=== PATIENT | female | born 1960 | race Caucasian/White ===

== ENCOUNTER 2024-10-18 06:13 | Day surgery (SDC) | payer BC, SELFPAY ==
[2024-10-18] VITALS (12 sets, daily range): BP systolic 150–185; BP diastolic 78–103; PULSE 55–67; RESP 16–20; TEMP 36.3–36.7; O2SAT 93–100; BMI 21.9
[2024-10-18] MEDS: LACTATED RINGERS 1000 ML 1,000 ML 100 ML IV (06:55)
[2024-10-18] MEDS: SODIUM CHLORIDE 0.9 % (FLUSH) 10 ML SYRINGE IVF (06:55)
--- NOTE | 2024-10-18 07:40 | W.PM.H&PU ---
History & Physical Update History & Physical Update H&P Reviewed and patient assessed: No changes noted
[2024-10-18] MEDS: CEFAZOLIN 1 GM inj IVP (07:44)
[2024-10-18] MEDS: BUPIVACAINE 0.5% 30 ML INJECTION (08:13)
--- NOTE | 2024-10-18 08:52 | PM.GSPRC ---
Operative Note Date of procedure: 10/18/24 Pre-op diagnosis: 1. Incarcerated epigastric hernia 2. Right thigh mass Post-op diagnosis: Same Type of Procedure: 1. Repair 2 cm incarcerated epigastric hernia with Phasix mesh 2. Removal 1 cm right thigh mass Indications: The patient is a 63-year-old female who presents an epigastric [address] for several years, however she began to have recurrent vomiting episodes which she thinks could be related. After discussion of options, she elected to proceed with repair. She also has a small nodule on her right inner thigh. This clinically looked consistent with a lipoma. We plan to excise this at the same time. Procedure Description: After discussing the risks and benefits of the procedure, the patient signed informed consent.? The operative site was marked and the patient was brought to the operating room and placed on the operating table in supine position.? Care was taken to pad the patient's pressure points.?? The patient was then intubated by anesthesia.?? The operative site was then prepped and draped in the usual sterile fashion.? A time-out was then performed. I began by making a vertical incision over the palpable epigastric hernia. This was not reducible. Dissection was taken down into the subcutaneous tissue using cautery. Herniated fat was encountered. This was dissected out from the subcutaneous tissue. The hernia opening was too small to reduce the herniated fat. The fat appeared to be preperitoneal in nature. There was a small hernia sac noted at the base. Using cautery, I excised the preperitoneal fat and discarded this. There was an adjacent area of herniated preperitoneal fat as well just to the right lateral of this first hernia. The preperitoneal fat was similarly excised and the thin strip of tissue connecting the 2 hernias broke apart with finger fracture. The hernia was 2 cm. The decision was made to use a piece of mesh. A preperitoneal pocket was created using a combination of blunt dissection and cautery. Hemostasis appeared adequate. Once the posterior fascia was clear, a piece of [address] umbilical hernia mesh was placed in the preperitoneal space with care to ensure that it laid flat. The patient and I had previously discussed using absorbable suture given her history of smoking increased risk for infection. The mesh was secured into place using 2 0 PDS interrupted sutures. The tails were then trimmed and the fascial opening was closed with a running 0 Vicryl. Local anesthetic was injected into the fascia and subcutaneous tissue. The subcutaneous space was then closed with interrupted 3-0 Vicryl suture. The skin was then closed with 4-0 Monocryl running absorbable suture. A sterile dressing was then applied. Attention was then turned to the right thigh mass. The patient was placed in frog-leg position and the right thigh mass was prepped and draped sterilely. An elliptical incision was then created following Pattie's lines. This was taken down to subcutaneous fat. The lesion was spongy and appeared to be consistent with a lipoma. This was adherent to the dermis however. It was completely removed excised and sent to pathology. Hemostasis appeared excellent. The skin was then closed with 4-0 Monocryl running subcuticular suture. glue was then applied. ? The patient was then woken and transported to the recovery area in stable condition. ? The patient tolerated the procedure well. Findings: 1. 2 cm preperitoneal fat containing epigastric hernia 2. 1 cm right thigh fatty mass Implants: Phasix ST mesh Anesthesia: GETA Surgeon: Isha Flores MD Estimated blood loss (mL): 5 Specimen: Other Additional Specimen Information: Right thigh mass Condition: stable Disposition: PACU
--- NOTE | 2024-10-18 08:58 | P.ANES_ITS ---
Anesthesia Charges Start Date/Time Anesthesia Start Date: 10/18/24 Anesthesia Start Time: 07:30 Stop Date/Time Anesthesia Stop Date: 10/18/24 Anesthesia Stop Time: 08:57 Coding CPT Codes CPT Codes: ANESTH REPAIR OF HERNIA - 02900 ([id number]) P2 - PATIENT W/MILD SYST DISEASE, QK - HOME STAGER 2-4 CNCRNT ANES PROC, QX - SHAPING MACHINE TENDER SVC W/ MD MED DIRECTION
--- NOTE | 2024-10-18 08:58 | W.ANESCHARGE ---
Anesthesia Charges Start Date/Time Anesthesia Start Date: 10/18/24 Anesthesia Start Time: 07:30 Stop Date/Time Anesthesia Stop Date: 10/18/24 Anesthesia Stop Time: 08:57 Coding CPT Codes CPT Codes: ANESTH REPAIR OF HERNIA - 10914 ([id number]) P2 - PATIENT W/MILD SYST DISEASE, QK - MASTER CONTROL TECHNICIAN 2-4 CNCRNT ANES PROC, QX - NATIONAL SALES ASSOCIATE SVC W/ MD MED DIRECTION
--- NOTE | 2024-10-18 09:06 | P.ANES_ITS ---
Anesthesia Charges Start Date/Time Anesthesia Start Date: 10/18/24 Anesthesia Start Time: 07:30 Stop Date/Time Anesthesia Stop Date: 10/18/24 Anesthesia Stop Time: 08:57 Coding CPT Codes CPT Codes: ANESTH REPAIR OF HERNIA - 35492 ([id number]) QK - PSYCHIATRIC SOCIAL WORKER 2-4 CNCRNT ANES PROC, QX - MAT MAN SVC W/ MD MED DIRECTION, P2 - PATIENT W/MILD SYST DISEASE
--- NOTE | 2024-10-18 09:06 | W.ANESCHARGE ---
Anesthesia Charges Start Date/Time Anesthesia Start Date: 10/18/24 Anesthesia Start Time: 07:30 Stop Date/Time Anesthesia Stop Date: 10/18/24 Anesthesia Stop Time: 08:57 Coding CPT Codes CPT Codes: ANESTH REPAIR OF HERNIA - 72006 ([id number]) QK - AUTO HEADLIGHT MECHANIC 2-4 CNCRNT ANES PROC, QX - LICENSE REGISTRATION EXAMINER SVC W/ MD MED DIRECTION, P2 - PATIENT W/MILD SYST DISEASE
[2024-10-18] MEDS: fentaNYL 100 MCG/2 ML inj 50 MCG IVP ×2 (09:14→09:28)
[2024-10-18] MEDS: LACTATED RINGERS 1000 ML 1,000 ML 50 ML IV (09:51)
== END 2024-10-18 10:54 | disposition home or self-care (01) ==
PROVIDERS: PCP Physician Assistant; Visit Provider Surgery
PROC: (CPT 49592; principal; 2024-10-18 07:30)
PROC: (CPT 49592; 2024-10-18 07:30)
DX: K43.6 Other and unspecified ventral hernia with obstruction, without gangrene (principal); D17.23 Benign lipomatous neoplasm of skin and subcutaneous tissue of right leg
CPT/HCPCS: 49592; 27327; 00750; 00752; 88305; C1781; J0330; J0665; J0690; J1100; J1885; J2405; J2704; J3010; J3490; J7120